=== PATIENT | female | born 1930 | race Caucasian/White ===

== ENCOUNTER 2019-09-21 15:51 | Inpatient (IN) ==
[2019-09-21] MEDS ORDERED: Naloxone 0.4 MG/ML INJ IVP PRN (18:14)
[2019-09-21] MEDS ORDERED: Nitroglycerin 0.4 MG TAB.SUBL SL PRN (18:21)
[2019-09-21] MEDS ORDERED: Perflutren Lipid Microsphere 1.3 ML in 0.9 % Sodium Chloride 8.7 ML IVP ONE (18:58)
[2019-09-21 20:07] LABS: Basophils # 0.1 K/mcL (0.0-0.2); Basophils % 0.5 %; Eosinophils # 0.2 K/mcL (0.0-0.6); Eosinophils % 1.3 %; Hematocrit 39.8 % (35.3-44.9); Hemoglobin 12.4 g/dL (11.5-15.4); Immature Granulocytes % 0.2 % (0-4); Lymphocytes # 1.3 K/mcL (0.6-4.6); Lymphocytes % 10.5 %; Mean Corpuscular HGB Conc 31.2 g/dL (31.6-35.5); Mean Corpuscular Volume 99.5 fL (83.0-100.0); Mean Platelet Volume 11.4 fL (9.4-12.4); Monocytes % 7.5 %; Neutrophils # 10.2 K/mcL (1.6-8.9); Platelet Count 293 K/mcL (140-400); Red Cell Distribution Width 13.1 % (11.5-14.5); White Blood Count 12.7 K/mcL (4.3-11.1)
[2019-09-21 20:26] LABS: Prothrombin Time 11.9 Seconds (9.4-12.1)
[2019-09-21 20:32] LABS: Alanine Aminotransferase 13 Units/L (7-52); Albumin/Globulin Ratio 1.5 (1.1-2.2); Alkaline Phosphatase 188 Units/L (34-104); Aspartate Amino Transferase 31 Units/L (13-39); BUN/Creatinine Ratio 20 (6-26); Bilirubin,Total 0.5 mg/dL (0.3-1.0); Blood Urea Nitrogen 45 mg/dL (8-23); Carbon Dioxide 18 mEq/L (23-29); Chloride 107 mEq/L (98-107); Chol/HDL Ratio 2.7 (0-4.9); Cholesterol 179 mg/dL (< 200); Globulin 2.6 g/dL (2.4-3.5); Glucose 105 mg/dL (70-105); HDL Cholesterol 66 mg/dL (40-59); LDL Cholesterol,Calculated 89 mg/dL (0-99); Magnesium 1.4 mg/dL (1.6-2.6); Osmolality,Calculated 296 (280-300); Phosphorous 3.2 mg/dL (2.7-4.5); Potassium 3.5 mEq/L (3.5-5.1); Salicylate < 2.5 mg/dL (15.0-30.0); Sodium 137 mEq/L (136-145); Total Protein 6.6 g/dL (6.4-8.9); Triglycerides 118 mg/dL (< 150); Troponin I 0.05 ng/mL (< 0.04); eGFR For African Americans 26 (> 60); eGFR For Non-African Americans 21 (> 60)
[2019-09-21] MEDS: cefTRIAXone 1,000 MG in Water for inj. (sterile) 10 ML IVP SCH (23:06)
[2019-09-21] MEDS: 0.9 % Sodium Chloride 1,000 ML IVC SCH (23:08)
[2019-09-21] MEDS: Insulin LISPRO 300 UNITS/3 ML VIAL SQ SCH (23:12)
[2019-09-22] MEDS ORDERED: Insulin LISPRO 300 UNITS/3 ML VIAL SQ SCH
[2019-09-22 02:49] LABS: Basophils % 0.3 %; Eosinophils # 0.3 K/mcL (0.0-0.6); Eosinophils % 2.2 %; Hematocrit 37.2 % (35.3-44.9); Hemoglobin 11.7 g/dL (11.5-15.4); Immature Granulocytes % 0.3 % (0-4); Lymphocytes # 1.1 K/mcL (0.6-4.6); Lymphocytes % 9.7 %; Mean Corpuscular HGB Conc 31.5 g/dL (31.6-35.5); Mean Corpuscular Hemoglobin 30.8 pg (28.0-33.3); Mean Corpuscular Volume 97.9 fL (83.0-100.0); Mean Platelet Volume 11.4 fL (9.4-12.4); Monocytes % 8.9 %; Neutrophils # 9.1 K/mcL (1.6-8.9); Nucleated Red Blood Cells 0.2 /100 WBC (0); Platelet Count 273 K/mcL (140-400); Red Cell Distribution Width 13.1 % (11.5-14.5); Segmented Neutrophils % 78.6 %; White Blood Count 11.6 K/mcL (4.3-11.1)
[2019-09-22 03:08] LABS: Calcium 8.5 mg/dL (8.6-10.3)
[2019-09-22] MEDS: 0.9 % Sodium Chloride 1,000 ML IVC SCH ×4 (03:33→23:06)
[2019-09-22] MEDS: *HR* Heparin 5,000 UNIT/ML VIAL SQ SCH ×2 (06:14→16:37)
[2019-09-22] MEDS ORDERED: Potassium Chloride 40 MEQ, Lidocaine 1% 2 ML in 0.9 % Sodium Chloride 500 ML IVPB ONE (08:34)
[2019-09-22] MEDS: cefTRIAXone 1,000 MG in Water for inj. (sterile) 10 ML IVP SCH (10:38)
[2019-09-22] MEDS: Insulin LISPRO 300 UNITS/3 ML VIAL SQ SCH ×4 (10:58→19:59)
[2019-09-22] MEDS: Aspirin Enteric Coated 81 MG Tablet PO SCH (11:06)
[2019-09-22 15:01] LABS: Magnesium 1.2 mg/dL (1.6-2.6)
[2019-09-22] MEDS ORDERED: Potassium Chloride Elixir 20 MEQ/15 ML UDC PO ONE (15:58)
[2019-09-22] MEDS ORDERED: *HR* LORazepam 2 MG/ML VIAL IVP ONE (16:14)
[2019-09-23] MEDS: *HR* Heparin 5,000 UNIT/ML VIAL SQ SCH ×2 (05:56→18:14)
[2019-09-23] MEDS ORDERED: diazePAM 10 MG/2 ML SYRINGE IVP ONE (09:11)
[2019-09-23] MEDS: 0.9 % Sodium Chloride 1,000 ML IVC SCH ×2 (10:23→16:35)
[2019-09-23] MEDS: Aspirin Enteric Coated 81 MG Tablet PO SCH (10:23)
[2019-09-23] MEDS: cefTRIAXone 1,000 MG in Water for inj. (sterile) 10 ML IVP SCH (10:24)
[2019-09-23] MEDS: Insulin LISPRO 300 UNITS/3 ML VIAL SQ SCH ×4 (10:24→20:46)
[2019-09-23] MEDS: Verapamil ER (24 HR) 120 MG TABLET.ER PO SCH (11:35)
[2019-09-23 13:13] LABS: Basophils % 0.4 %; Eosinophils # 0.2 K/mcL (0.0-0.6); Eosinophils % 2.1 %; Hematocrit 36.3 % (35.3-44.9); Hemoglobin 11.3 g/dL (11.5-15.4); Immature Granulocytes % 0.3 % (0-4); Lymphocytes # 1.2 K/mcL (0.6-4.6); Lymphocytes % 11.2 %; Mean Corpuscular HGB Conc 31.1 g/dL (31.6-35.5); Mean Corpuscular Hemoglobin 31.2 pg (28.0-33.3); Mean Corpuscular Volume 100.3 fL (83.0-100.0); Mean Platelet Volume 11.1 fL (9.4-12.4); Monocytes # 0.7 K/mcL (0.0-1.3); Monocytes % 6.8 %; Neutrophils # 8.3 K/mcL (1.6-8.9); Platelet Count 263 K/mcL (140-400); Red Blood Count 3.62 M/mcL (3.82-4.97); Red Cell Distribution Width 13.2 % (11.5-14.5); Segmented Neutrophils % 79.2 %; White Blood Count 10.5 K/mcL (4.3-11.1)
[2019-09-23 13:29] LABS: Calcium 8.1 mg/dL (8.6-10.3); Potassium 3.5 mEq/L (3.5-5.1)
[2019-09-23] MEDS ORDERED: *HR* LORazepam 2 MG/ML VIAL IVP ONE ×2 (15:58→17:33)
[2019-09-23] MEDS ORDERED: 0.9 % Sodium Chloride 250 ML IV ONE (19:30)
[2019-09-23] MEDS ORDERED: *HR* Metoprolol 5 MG/5 ML VIAL IVP ONE (23:35)
[2019-09-24] MEDS ORDERED: *HR* Metoprolol 5 MG/5 ML VIAL IVP ONE (02:11)
[2019-09-24 02:29] LABS: Calcium 8.1 mg/dL (8.6-10.3); Magnesium 1.9 mg/dL (1.6-2.6); Phosphorous 3.6 mg/dL (2.7-4.5); Potassium 3.9 mEq/L (3.5-5.1)
[2019-09-24] MEDS: Verapamil ER (24 HR) 120 MG TABLET.ER PO SCH ×3 (02:45→23:49)
[2019-09-24] MEDS ORDERED: Acetylcysteine 10% 2 ML INHSOL IH SCH (03:45)
[2019-09-24] MEDS ORDERED: Albuterol 2.5 MG/3 ML NEBULIZER IH PRN (04:05)
[2019-09-24] MEDS: *HR* Heparin 5,000 UNIT/ML VIAL SQ SCH ×2 (05:18→18:04)
[2019-09-24] MEDS: Acetylcysteine 10% 2 ML INHSOL IH SCH ×2 (06:44→16:22)
[2019-09-24] MEDS ORDERED: *HR* Metoprolol 5 MG/5 ML VIAL IVP PRN (07:08)
[2019-09-24] MEDS ORDERED: CefTRIAXone 1,000 MG VIAL ONE (08:15)
[2019-09-24] MEDS ORDERED: lisinopriL 20 MG TABLET ONE (08:15)
[2019-09-24] MEDS ORDERED: Water for inj. (sterile) 20 ML VIAL IV ONE (08:15)
[2019-09-24] MEDS ORDERED: Verapamil ER (24 HR) 120 MG TABLET.ER PO ONE (08:15)
[2019-09-24] MEDS ORDERED: Aspirin Enteric Coated 81 MG Tablet PO ONE (08:15)
[2019-09-24] MEDS ORDERED: Insulin DETEMIR 100 UNIT/ML X5UNITS SQ ONE (13:22)
[2019-09-24] MEDS ORDERED: *HR* LORazepam 2 MG/ML VIAL ONE (14:15)
[2019-09-24] MEDS: Insulin LISPRO 300 UNITS/3 ML VIAL SQ SCH ×3 (16:06→23:49)
[2019-09-24] MEDS: Aspirin Enteric Coated 81 MG Tablet PO SCH (16:06)
[2019-09-24] MEDS: cefTRIAXone 1,000 MG in Water for inj. (sterile) 10 ML IVP SCH (16:07)
[2019-09-24] MEDS: lisinopriL 20 MG TABLET PO SCH (16:08)
[2019-09-24] MEDS: Levalbuterol Neb 1.25 MG/3 ML IH SCH ×2 (20:08→22:23)
[2019-09-24] MEDS ORDERED: Levalbuterol Neb 1.25 MG/3 ML IH SCH (22:00)
[2019-09-25] MEDS: Levalbuterol Neb 1.25 MG/3 ML IH SCH (03:42)
[2019-09-25] MEDS ORDERED: Levalbuterol Neb 1.25 MG/3 ML IH PRN (04:26)
[2019-09-25] MEDS: *HR* Heparin 5,000 UNIT/ML VIAL SQ SCH ×2 (05:02→17:42)
[2019-09-25 05:37] LABS: Basophils # 0.1 K/mcL (0.0-0.2); Basophils % 0.7 %; Eosinophils # 0.1 K/mcL (0.0-0.6); Eosinophils % 1.3 %; Hemoglobin 10.5 g/dL (11.5-15.4); Immature Granulocytes % 1.3 % (0-4); Lymphocytes # 1.3 K/mcL (0.6-4.6); Lymphocytes % 12.9 %; Mean Corpuscular HGB Conc 30.9 g/dL (31.6-35.5); Mean Corpuscular Hemoglobin 30.8 pg (28.0-33.3); Mean Corpuscular Volume 99.7 fL (83.0-100.0); Mean Platelet Volume 11.4 fL (9.4-12.4); Monocytes # 0.7 K/mcL (0.0-1.3); Monocytes % 7.3 %; Neutrophils # 7.8 K/mcL (1.6-8.9); Nucleated Red Blood Cells 0.4 /100 WBC (0); Platelet Count 270 K/mcL (140-400); Red Blood Count 3.41 M/mcL (3.82-4.97); Red Cell Distribution Width 13.5 % (11.5-14.5); Segmented Neutrophils % 76.5 %; White Blood Count 10.2 K/mcL (4.3-11.1)
[2019-09-25 06:07] LABS: Calcium 8.5 mg/dL (8.6-10.3)
[2019-09-25] MEDS ORDERED: Furosemide 20 MG/2 ML VIAL IVP ONE (08:23)
[2019-09-25] MEDS: Insulin LISPRO 300 UNITS/3 ML VIAL SQ SCH ×3 (10:27→17:41)
[2019-09-25] MEDS: Aspirin Enteric Coated 81 MG Tablet PO SCH (14:52)
[2019-09-25] MEDS: Verapamil ER (24 HR) 120 MG TABLET.ER PO SCH (14:54)
[2019-09-25] MEDS: lisinopriL 20 MG TABLET PO SCH (14:54)
[2019-09-25] MEDS ORDERED: cefTRIAXone 1,000 MG in Water for inj. (sterile) 10 ML IVP ONE (15:17)
[2019-09-25] MEDS: cefTRIAXone 1,000 MG in Water for inj. (sterile) 10 ML IVP SCH (15:21)
[2019-09-25] MEDS ORDERED: Acetaminophen 325 MG TABLET PO ONE (19:55)
[2019-09-25] MEDS ORDERED: Melatonin 3 MG TABLET PO ONE (19:55)
[2019-09-26] MEDS: Insulin DETEMIR 100 UNIT/ML X5UNITS SQ SCH ×2 (00:43→20:14)
[2019-09-26] MEDS: Verapamil ER (24 HR) 120 MG TABLET.ER PO SCH ×3 (00:43→20:22)
[2019-09-26] MEDS: Insulin LISPRO 300 UNITS/3 ML VIAL SQ SCH ×5 (00:43→20:13)
[2019-09-26] MEDS: *HR* Heparin 5,000 UNIT/ML VIAL SQ SCH ×2 (04:39→17:34)
[2019-09-26 05:39] LABS: Basophils # 0.1 K/mcL (0.0-0.2); Basophils % 1.1 %; Eosinophils # 0.4 K/mcL (0.0-0.6); Eosinophils % 4.1 %; Hematocrit 34.1 % (35.3-44.9); Hemoglobin 10.8 g/dL (11.5-15.4); Immature Granulocytes % 1.6 % (0-4); Lymphocytes # 1.3 K/mcL (0.6-4.6); Mean Corpuscular HGB Conc 31.7 g/dL (31.6-35.5); Mean Corpuscular Hemoglobin 31.3 pg (28.0-33.3); Mean Corpuscular Volume 98.8 fL (83.0-100.0); Mean Platelet Volume 11.3 fL (9.4-12.4); Monocytes # 0.7 K/mcL (0.0-1.3); Monocytes % 8.6 %; Neutrophils # 5.9 K/mcL (1.6-8.9); Nucleated Red Blood Cells 0.6 /100 WBC (0); Platelet Count 280 K/mcL (140-400); Red Blood Count 3.45 M/mcL (3.82-4.97); Red Cell Distribution Width 13.6 % (11.5-14.5); Segmented Neutrophils % 69.6 %; White Blood Count 8.5 K/mcL (4.3-11.1)
[2019-09-26 06:12] LABS: Calcium 8.7 mg/dL (8.6-10.3); Potassium 3.8 mEq/L (3.5-5.1)
[2019-09-26] MEDS ORDERED: Furosemide 20 MG/2 ML VIAL IVP ONE (09:35)
[2019-09-26] MEDS: Aspirin Enteric Coated 81 MG Tablet PO SCH (09:45)
[2019-09-26] MEDS: lisinopriL 20 MG TABLET PO SCH (09:45)
[2019-09-26] MEDS ORDERED: Perflutren Lipid Microsphere 1.3 ML in 0.9 % Sodium Chloride 8.7 ML IVP ONE (15:32)
[2019-09-27] MEDS ORDERED: Haloperidol Lactate 5 MG/ML VIAL IVP ONE (00:20)
[2019-09-27] MEDS: *HR* Heparin 5,000 UNIT/ML VIAL SQ SCH (05:02)
[2019-09-27 06:22] LABS: Basophils # 0.1 K/mcL (0.0-0.2); Basophils % 0.8 %; Eosinophils # 0.3 K/mcL (0.0-0.6); Eosinophils % 3.1 %; Hematocrit 35.4 % (35.3-44.9); Hemoglobin 11.2 g/dL (11.5-15.4); Immature Granulocytes % 2.1 % (0-4); Lymphocytes # 1.5 K/mcL (0.6-4.6); Mean Corpuscular HGB Conc 31.6 g/dL (31.6-35.5); Mean Corpuscular Hemoglobin 30.9 pg (28.0-33.3); Mean Corpuscular Volume 97.8 fL (83.0-100.0); Mean Platelet Volume 11.8 fL (9.4-12.4); Monocytes % 9.6 %; Neutrophils # 7.6 K/mcL (1.6-8.9); Nucleated Red Blood Cells 0.7 /100 WBC (0); Platelet Count 275 K/mcL (140-400); Red Blood Count 3.62 M/mcL (3.82-4.97); Red Cell Distribution Width 13.5 % (11.5-14.5); Segmented Neutrophils % 70.4 %; White Blood Count 10.8 K/mcL (4.3-11.1)
[2019-09-27 06:39] LABS: Calcium 8.4 mg/dL (8.6-10.3); Potassium 3.6 mEq/L (3.5-5.1)
[2019-09-27 06:53] VITALS: BP 145/96
[2019-09-27] MEDS: Aspirin Enteric Coated 81 MG Tablet PO SCH (09:12)
[2019-09-27] MEDS: Verapamil ER (24 HR) 120 MG TABLET.ER PO SCH (09:12)
[2019-09-27] MEDS: lisinopriL 20 MG TABLET PO SCH (09:12)
[2019-09-27] MEDS: Insulin LISPRO 300 UNITS/3 ML VIAL SQ SCH (09:15)
== END 2019-09-27 11:33 | disposition home health service (06) | DRG 69 ==
LOC: 3BNU → SUATTDRO 17:53
PROVIDERS: ADMIT Student in an Organized Health Care Education/Training Program; ATTEND Student in an Organized Health Care Education/Training Program